=== PATIENT | female | born 2000 | race Two or more races ===

== ENCOUNTER 2025-06-25 00:38 | Emergency (ER) | payer MEDICAID, SELFPAY ==
[2025-06-25 00:43] VITALS: BP 131/87; PULSE 76; RESP 20; TEMP 36.8; O2SAT 96; BMI 26.8
--- NOTE | 2025-06-25 01:03 | XR_ITS ---
Examination: CT abdomen with intravenous contrast CT pelvis with intravenous contrast 2-D coronal reconstructions 2-D sagittal reconstructions Date and time of exam: June 25, 2025, 0209 hours INDICATIONS: Onset right lower abdominal pain today. CTDI: vol (mGy) 7.12 DLP: (mGycm) 384 Technique: Multiple axial sections of the abdomen and pelvis have been obtained. 64 slice high-resolution scanner used. 3 mm axial sections have been obtained, post intravenous injection 60 cc [id number] 2-D sagittal, coronal reconstructions obtained. Low dose protocols were performed. One or more of the following dose reduction techniques were used; automated exposure control, adjustment of the mA and/or KV according to patient size, use of iterative reconstruction technique. Findings: No visualized liver or splenic lesion No gallstones No pancreatic mass. No renal or ureteral calculi, no hydronephrosis Tiny fat-containing umbilical hernia. Normal appendix No bowel obstruction Involuting 16 mm left ovarian follicular cyst with free fluid in the pelvis No bladder mass IMPRESSION: Normal appendix Involuting 16 mm left ovarian follicular cyst with free fluid in the pelvis, consider pelvic sonography follow-up
[2025-06-25 01:05] LABS: Collection Type, Urine Clean Catch
--- NOTE | 2025-06-25 01:06 | EDNOTE_ITS ---
ED Abdominal Pain RME/HPI General Chief Complaint: Abdominal Pain Stated complaint: ABD PAIN Arrival date/time: 06/25/25 00:38 RME / HPI RME / HPI narrative: CC abdominal pain Patient is a 25-year-old female with no past medical history G2T2 who presented to the emergency room via private vehicle with a chief complain of abdominal pain, localized to umbilical region and radiating towards suprapubic region and right lower quadrant. Patient stated pain is currently 5/10 and sharp, worsened by palpation. Abdominal Pain started on Wednesday evening and has been ongoing despite Tylenol q8hrs at home. No Fevers. yes Chills. Yes nausea. NO vomiting. Denied Constipation. No pain/burn w/ urination. No increase frequency with urination. Denied diarrhea. Denied sick contacts. No past medical surgeries. Previous pregnancies were full term live births without complications. Denied vaginal discharge or foal smelling discharge. No sick contacts. No right upper quadrant pain. Last day of menstrual period on Jun 14, 2025. Allergic only to Advil, no other formulations of NSAIDS, including generic brand of ibuprofen Related Data Home Medications ?Medication ?Instructions ?Recorded ?Confirmed vit no.95-ferrous 1 tab PO DAILY 03/07/21 fumarate 28 mg-folic acid 800 mcg tablet () Previous Rx's ?Medication ?Instructions ?Recorded hydrocodone 2.5 mg-acetaminophen 1 tab PO BID PRN pain 3 days #7 06/25/25 325 mg tablet tabs Allergies Allergy/AdvReac Type Severity Reaction Status Date / Time ibuprofen (From Advil) Allergy Severe Rash and Verified 06/25/25 00:39 swelling of face and throat orange Allergy Severe Rash Verified 06/25/25 00:39 Review of Systems Review of Systems Narrative Review of Systems: General appearance: NO weight change, NO fatigue, NO weakness, NO fever, NO chills, NO night sweats, No cough Skin: NO rash, NO itching, NO sores, NO moles HEENT: NO Trauma, NO nausea, NO vomiting, NO visual changes, NO blurry vision, NO double vision, NO tinnitus, NO vertigo, NO ear discharge, NO rhinorrhea, NO stuffiness, NO sneezing, NO allergy, NO epistaxis. NO Hoarseness, NO sore throat, NO swollen neck. Cardiac: NO Palpitations, NO dyspnea on exertion, NO orthopnea, NO paroxysmal nocturnal dyspnea, NO edema Respiratory: NO Shortness of Breath, NO Wheezing, NO Cough, NO Sputum, NO hemoptysis GI:NO appetite, Yes nausea, NO vomiting, NO dysphagia, NO changes in bowel frequency, NO stool color, NO diarrhea, NO constipation, NO hemetemesis, NO hemorrhoids, NO melena, NO hematechezia, Yes abdominal pain, NO jaundice Renal: NO frequency, NO hesitancy, NO urgency, NO hematuria, NO nocturia, NO incontinence MSK: NO muscle weakness, NO gout, NO arthritis, NO muscle stiffness Neuro: NO headaches, NO tremors, NO weakness, NO paralysis, NO seizures, NO loss of consciousness, NO numbness. Hem: NO anemia, NO easy bruising/bleeding, NO petechiae, NO purpura Endo: NO heat/cold intolerance, NO excessive sweating, NO polyuria, NO polydipsia, NO polyphagia, NO thyroid problems, NO diabetes Pysch: NO mood, NO anxiety, NO depression ED Exam Narrative Physical exam: General Appearance: Alert & Oriented X3, well-nourished female who is lying in bed in no acute distress HEENT: Skull symmetrical and atraumatic. Conjunctivae pin and moist. Pupils equal, round, reactive to light and accommodation (PERRL). External ear without lesion or discharge. Straight, nares patient, mucosa pink, no discharge. No thyroid nodule appreciated. No cervical lymphadenopathy. Cardio: Normal Rate and Rhythm with S1 and S2 heart sounds. No murmurs or extra heart sounds auscultated. No bruits on carotid auscultation. No peripheral edema or cyanosis. Lungs: Symmetric with good expansion. Chest and back non-tender. Breath sounds vesicular without crackles, wheezing or rhonchi Abdomen: yes tender at umbilical region, radiating towards right lower quadrant and suprapubic region, Non-distended, Normal Reactive Bowel Sounds, NO CVA tenderness Neuro: Alert, cooperative, oriented to person, place, and time. Speech clear. CN grossly intact. Upper motor strength 5/5 and Lower motor strength 5/5. Sensation intact. Course Course Course Narrative: CBC CMP hcg UA CT abdomen/pelvis with contrast Quality Measures none Orders Category Date Time Status CT Screening NOW Care 06/25/25 01:[address] abdomen pelvis w con Stat Exams 06/25/25 01:03 Taken US abdomen limited Stat Exams 06/25/25 00:56 Stop Req CBC Stat Lab 06/25/25 01:14 Completed CMP [Comprehensive Metabolic Panel] Stat Lab 06/25/25 01:14 Completed HCG,Qualitative Serum Stat Lab 06/25/25 01:14 Completed Urinalysis, C/S if Indicated Stat Lab 06/25/25 01:00 Completed Ketorolac Inj [Toradol Inj] Med 06/25/25 00:58 Discontinued 30 mg IM X1 ONE Morphine* Inj Med 06/25/25 01:22 Discontinued 2 mg IVP X1 ONE Ondansetron Odt [Zofran Odt] Med 06/25/25 00:59 Discontinued 4 mg PO X1 ONE Vital Signs Vital signs: Vital Signs Temperature 98.2 F 06/25/25 00:43 Pulse Rate 76 06/25/25 00:43 Respiratory Rate 20 06/25/25 00:43 Blood Pressure 131/87 H 06/25/25 00:43 Pulse Oximetry (%) 96 06/25/25 00:43 Oxygen Delivery Method Room Air 06/25/25 00:43 Abdominal Pain MDM Patient data External records reviewed:: [facility] previous records Clinical information provided by:: patient and family Social determinants that could affect healthcare access:: none Patient has the following chronic illnesses:: None How is presenting disease/condition affected by chronic disease/condition?: no chronic disease Evaluation data The following diagnostics were reviewed and interpreted by me:: lab results and radiology exam(s) Lab and/or radiology exams considered but not ordered:: None Interpretation Summary: Patient is a 25-year-old female with no past medical history G2T2 who presented with a chief complain of abdominal pain starting at umbilical region and radiating to patient 's sides.Mild Leukocytosis noted with no tachycardia and no fevers. HCG negative. UA negative, no UTI. CT Abdomen/Pelvis negative for acute appendicitis and no bowel obstruction. Involuting corpus luteum in the left ovary with small amount of free fluid in the pelvis, thus likely diagnosis of ruptured cyst. #Ovarian Cyst - The patient's plan was discussed with attending Dr. Mynor Tellez MD PGY2 Internal Medicine Medications / Prescriptions Medications or Prescriptions considered but not ordered:: none Medication administrations:: Medication Administration History Discontinued Medications Ketorolac Tromethamine (Ketorolac Inj 30 Mg/Ml Vial) 30 mg IM X1 ONE Stop: 06/25/25 00:59 Last Admin: 06/25/25 01:31 Dose: Not Given Documented By: CASSIE Non-Admin Reason: Cancelled by Provider Morphine Sulfate (Morphine Sulf Inj 4 Mg/Ml Vial) 2 mg IVP X1 ONE Stop: 06/25/25 01:23 Last Admin: 06/25/25 01:29 Dose: 2 mg Documented By: CASSIE Ondansetron HCl (Ondansetron Odt 4 Mg Tabrap) 4 mg PO X1 ONE; Protocol Stop: 06/25/25 01:00 Last Admin: 06/25/25 01:29 Dose: 4 mg Documented By: CASSIE same as above Consultations Consultation(s) initiated? (list below): No Diagnosis Differential diagnosis abdominal pain: abdominal pain, acute appendicitis, constipation and gastroenteritis Most likely diagnosis given after review of the tests above:: Patient is a 25-year-old female with no past medical history G2T2 who presented with a chief complain of abdominal pain starting at umbilical region and radiating to patient 's sides.Mild Leukocytosis noted with no tachycardia and no fevers. HCG negative. UA negative, no UTI. CT Abdomen/Pelvis negative for acute appendicitis and no bowel obstruction. Involuting corpus luteum in the left ovary with small amount of free fluid in the pelvis, thus likely diagnosis of ruptured cyst. #Ovarian Cyst #Abdominal Pain - The patient's plan was discussed with attending Dr. Mynor Tellez MD PGY2 Internal Medicine Admission Indicated Admission indicated?: not indicated Admission Request Was there a request for admission?: No Disposition Plan Disposition Plan: Discharge Discharge Attestation Discharge Attestation: The patient and all family members were given an opportunity to ask questions and understood the discharge instructions. Discharge instructions specifically effects, indications for sooner follow up or return to the emergency department, and the expected course of current diagnosis. Patient condition: Stable Discharge Plan Plan Patient Disposition: HOME (Self Care) Patient condition on transfer: Stable Health Concerns: Instructions: -You have been diagnosed with a cyst in the left ovary. -Please take Nocro 1 tablet twice daily NEEDED for pain. Please do not combine with Tylenol. -Your CT abdomen/pelvis showed no appendicitis or stones in your gallbladder. -Please follow-up with an [facility] physician if you continue to experience pain. -Please follow up with your primary care provider within one week of discharge -If your symptoms worsen,please seek immediate medical attention and return to your nearest emergency room -If you do not have a primary care provider, you may follow up at the [facility] [address], [place] [address], Prescriptions/Referrals Prescriptions/Med Rec: New hydrocodone-acetaminophen 2.5-325 mg tablet 1 tab PO BID MDD no more than 2 tablets per day PRN (Reason: pain) 3 Days Qty: 7 0RF Continued PNV no.95-ferrous fumarate-FA [] 28 mg iron- 800 mcg tablet 1 tab PO DAILY Referrals: No Primary/Family,Physician [Referring Provider] - In 1 week Problem List Clinical Impression: Ovarian cyst, Abdominal pain Patient/Caregiver Discharge Instructions Education Materials: ED Ovarian Cyst Print Language: [place] Stand Alone Forms: Maria Eugenia Award Info., Patient Portal Info Letter
--- NOTE | 2025-06-25 01:08 | PC.NURSE ---
MD CHAVEZ OK WITH GIVING TORADOL WITH ALLERGY TO IBUPROFEN
[2025-06-25 01:12] VITALS: BP 125/76; PULSE 74; RESP 18; TEMP 36.6; O2SAT 100
[2025-06-25 01:18] LABS: Bilirubin,Urine Negative (Negative); Blood,Urine Negative (Negative); Clarity,Urine Clear (Clear/Hazy); Color,Urine Lt-Yellow (Lt Yel-Yel); Culture Indicated,Urine Not Indicated; Glucose, Urine Negative (Negative); Ketones,Urine Negative (Negative); Leukocyte Esterase,Urine Negative (Negative); Nitrite,Urine Negative (Negative); PH,Urine 7.0 (5.0-7.0); Protein,Urine Negative (Neg - Trace); RBC,Urine 1 /hpf (0-3); Specific Gravity,Urine 1.012 (1.001-1.035); Squamous Epithelial Cell,Urine 1 /hpf (0-5); Urobilinogen,Urine Negative mg/dL (0.0-1.0); WBC,Urine < 1 /hpf (0-5)
[2025-06-25 01:20] LABS: Basophils # (Auto) 0.1 Thou/mm3 (0.0-0.2); Basophils % (Auto) 1 % (0-2.5); Eosinophils # (Auto) 0.2 Thou/mm3 (0.0-0.5); Eosinophils % (Auto) 1 % (0-10); Hematocrit 40.1 % (36.0-46.0); Hemoglobin 13.6 g/dL (12.0-16.0); Immature Granulocytes Auto 0.04 Thou/mm3 (0.00-0.00); Lymphocytes # (Auto) 3.4 Thou/mm3 (1.0-4.8); Lymphocytes % (Auto) 28 % (10-50); Mean Corpuscular HGB Conc 33.9 g/dl (31.0-37.0); Mean Corpuscular Hemoglobin 28.6 pg (25.0-35.0); Mean Corpuscular Volume 84 fL (80-100); Monocytes # (Auto) 0.8 Thou/mm3 (0.0-0.8); Monocytes % (Auto) 7 % (0-12); Neutrophils # (Auto) 7.8 Thou/mm3 (1.8-7.7); Neutrophils % (Auto) 64 % (37-80); Nucleated Red Blood Cell # 0.00 Thou/mm3 (0.00-0.00); Nucleated Red Blood Cell % 0 /100 WBC (0); Platelet Count 265 Thou/mm3 (140-440); RDW Standard Deviation 39.9 fL (36.4-46.3); Red Blood Count 4.75 Miln/mm3 (4.00-5.20); White Blood Count 12.2 Thou/mm3 (3.6-11.0)
[2025-06-25] MEDS: MORPHINE SULF INJ 4 MG/ML VIAL 2 MG IVP (01:29)
[2025-06-25] MEDS: ONDANSETRON ODT 4 MG TABRAP PO (01:29)
[2025-06-25 01:37] LABS: HCG,Qualitative Serum Negative
[2025-06-25 01:39] LABS: Alanine Aminotransferase 24 U/L (10-49); Albumin, Serum 4.6 gm/dL (3.5-5.0); Albumin/Globulin Ratio 2.2 (1.2-2.2); Alkaline Phosphatase 106 U/L (46-116); Anion Gap 9 (7-16); Aspartate Amino Transferase 18 U/L (0-34); BUN/Creatinine Ratio 10 Ratio (12-20); Bilirubin,Total 0.3 mg/dL (0.3-1.2); Blood Urea Nitrogen 8 mg/dL (9-23); Calcium 9.4 mg/dL (8.3-10.6); Calcium (Corrected) 9.4 mg/dL (8.5-10.1); Carbon Dioxide 28.7 mMol/L (20.0-31.0); Chloride 105 mMol/L (98-107); Creatinine (Component) 0.8 mg/dL (0.6-1.3); Estimated Creatinine Clearance 89.4 mL/min (>60); Globulin 2.1 gm/dL (2.3-3.5); Glucose 133 mg/dL (74-106); Osmolality,Calculated 285 (275-295); Potassium 3.7 mMol/L (3.4-5.1); Sodium 143 mMol/L (136-145); Total Protein 6.7 gm/dL (5.7-8.2); eGFR > 60 See Note
[2025-06-25 03:00] VITALS: BP 103/64; PULSE 68; RESP 18; TEMP 36.6; O2SAT 100
--- NOTE | 2025-06-25 03:16 | PRELIM_ITS ---
CT scan of the abdomen and pelvis with intravenous contrast (axial sections with sagittal and coronal reformats) June 25, 2025 0209 hours Clinical History: Abdominal pain, rule out appendicitis. Comparison: No prior study is available for comparison. Findings: The lung bases are clear. There is fatty infiltration of the liver. The gallbladder, pancreas, spleen, kidneys and adrenals are unremarkable. No evidence of bowel obstruction. The appendix is within normal limits (images [id number], series 2). There is no mesenteric or retroperitoneal adenopathy. The urinary bladder is unremarkable. The uterus is retroflexed. Involuting corpus luteum cyst in the left ovary with small amount of free fluid in the pelvis. No intraperitoneal free air. The osseous structures are unremarkable. Impression: No acute appendicitis. No evidence of bowel obstruction, free air or abscess. Involuting corpus luteum cyst in the left ovary with small amount of free fluid in the pelvis. Other findings as described above. Report Electronically Signed By: Mono Valdez 06/25/2025 3:16:01 AM [EST]
[2025-06-25 03:41] VITALS: BP 119/86; PULSE 65; RESP 18; TEMP 36.9; O2SAT 100
== END 2025-06-25 03:43 | disposition home or self-care (01) ==
PROVIDERS: PCP Family Medicine
DX: N83.02 Follicular cyst of left ovary (principal); D72.829 Elevated white blood cell count, unspecified
CPT/HCPCS: 36415; 74177; 80053; 81001; 84703; 85025; 96374; 99283; A4649; J2270; Q0162; Q9967

== ENCOUNTER 2025-08-07 13:48 | Emergency (ER) | payer MEDICAID, SELFPAY ==
[2025-08-07 14:25] VITALS: BP 122/75; PULSE 108; RESP 18; TEMP 37.6; O2SAT 98; BMI 26.6
--- NOTE | 2025-08-07 14:30 | XR_ITS ---
Study: 1 view chest. INDICATION: Fever, headache and chest pain for 1 day. TECHNIQUE: AP upright chest radiograph at 1436 hours 07 August 2025. No comparison study. FINDINGS: The lungs are fully expanded and free from alveolar infiltrates or nodules. There are no effusions. The heart is normal in size and contour. Superior mediastinal structures are narrow and peripheral vessels are normal in distribution. IMPRESSION: No acute diagnostic abnormality.
[2025-08-07 16:44] LABS: Collection Type, Urine Voided; RBC,Urine 0 /hpf (0-3)
[2025-08-07 16:51] LABS: Bilirubin,Urine Negative (Negative); Blood,Urine Negative (Negative); Clarity,Urine Clear (Clear/Hazy); Color,Urine Colorless (Lt Yel-Yel); Glucose, Urine Negative (Negative); Ketones,Urine Negative (Negative); Leukocyte Esterase,Urine Negative (Negative); Nitrite,Urine Negative (Negative); PH,Urine 7.0 (5.0-7.0); Protein,Urine Negative (Neg - Trace); Specific Gravity,Urine 1.007 (1.001-1.035); Squamous Epithelial Cell,Urine 2 /hpf (0-5); Urobilinogen,Urine Negative mg/dL (0.0-1.0); WBC,Urine 1 /hpf (0-5)
[2025-08-07 17:13] LABS: HCG Qualitative,Urine Positive
--- NOTE | 2025-08-07 17:36 | PD.EDFEVER ---
ED Fever RME/HPI General Chief Complaint: Headache Stated Complaint: HEADACHE, EYES BURNING, COUGH, FEVER, ACHY BONES Time Seen by Provider: 08/07/25 13:59 Arrival date/time: 08/07/25 13:48 This is a case of 25-year-old female with no medical history came into the emergency room due to fever for 2 days associated with cough frontal headache body ache persistence of the symptoms thus patient decided to sought consult here in the emergency room no shortness of breath no wheezing no chest pain patient denies Limitations: no limitations Related Data Home Medications ?Medication ?Instructions ?Recorded ?Confirmed vit no.95-ferrous 1 tab PO DAILY 03/07/21 08/26/22 fumarate 28 mg-folic acid 800 mcg tablet () Previous Rx's ?Medication ?Instructions ?Recorded albuterol sulfate 90 mcg/actuation 1 puff inhalation Q4H PRN 08/07/25 aerosol inhaler (Ventolin HFA) shortness of breath or wheezing #8.5 grams oseltamivir 75 mg capsule (Tamiflu) 75 mg PO BID 5 days #10 caps 08/07/25 Allergies Allergy/AdvReac Type Severity Reaction Status Date / Time ibuprofen (From Advil) Allergy Severe Rash and Verified 08/07/25 13:51 swelling of face and throat orange Allergy Severe Rash Verified 08/07/25 13:51 Review of Systems Review of Systems Systems Reviewed: All systems reviewed, normal except as documented Past Medical History Past Medical History NEUROLOGIC: Negative Neurological Disorders CARDIAC: Negative Cardiac Disorders or Congestive Heart Failure RESPIRATORY: Negative Chronic Obstructive Pulmonary Disease (COPD) or Asthma GASTROINTESTINAL: Negative Gastrointestinal Disorders or Hepatitis GENITOURINARY: Negative Genitourinary Disorders or Renal Disease REPRODUCTIVE: Positive Previous Pregnancies (2020); Negative Endometriosis, Pelvic Inflammatory Disease or Uterine Prolapse MUSCULOSKELETAL: Negative Musculoskeletal Disorders ENDOCRINE: Negative Endocrine Disorders, Diabetes Mellitus Type 1 or Diabetes Mellitus Type 2 HEMATOLOGIC: Positive Blood Disorders and Anemia (in ); Negative Sickle Cell Disease OTHER HISTORY: Positive Hospitalization ( 2020); Negative Autoimmune Disease, Down Syndrome, Developmental Delay, Shingles, Falls, Blood Transfusions, Anesthesia Reactions, Organ Transplant, Chemotherapy, Radiation Therapy, MRSA, VRSA, Vancomycin-Resistant Enterococci, Human Immunodeficiency Virus (HIV), Chicken Pox, Measles, Mumps, Rubella (Lao Measles), Pertussis, Clostridium Difficile or Cancer Family History FAMILY HISTORY: Negative Family Psychiatric Problems, Family Respiratory Disorders, Family Cardiac Disorders, Family Gastrointestinal Problems, Family Cancer, Family Surgery or Family Anesthesia Reaction Surgical History SURGICAL: Negative Cardiac Surgery, Endocrine Surgery, Ear Surgery, Abdominal Surgery, Nephrectomy, Joint Replacement, Neurologic Surgery, Mastectomy, Lumpectomy, Hysterectomy, Tubal Ligation, Section or Organ Transplant Social History SMOKING STATUS: Never smoker SECOND HAND EXPOSURE: No SUBSTANCE USE: does not use Physical Exam General Limitations: no limitations General appearance: alert, in no apparent distress and other (Patient is awake alert oriented not in distress nontoxic looking well-hydrated well nourised) Head Head exam: atraumatic, normocephalic and normal inspection Eye Eye exam: Present normal appearance, PERRL and EOMI ENT ENT exam: Present normal exam, normal oropharynx, mucous membranes moist and other (HEENT exam is normal and unremarkable) Neck Neck exam: Present normal inspection, full ROM, trachea midline and other (Negative for meningeal sign); Absent tenderness, meningismus, lymphadenopathy or thyromegaly Chest Chest inspection: Present normal inspection and symmetric chest wall rise; Absent tenderness Respiratory Respiratory exam: Present normal lung sounds bilaterally; Absent respiratory distress, wheezes, stridor, accessory muscle use or prolonged expiratory phase Cardiovascular Cardiovascular exam: Present regular rate, normal rhythm and normal heart sounds; Absent bradycardia, tachycardia, irregular rhythm, systolic murmur or diastolic murmur Abdominal Exam Abdominal exam: Present soft and normal bowel sounds; Absent distention, tenderness, guarding, rebound, rigidity, diminished bowel sounds, hyperactive bowel sounds, hypoactive bowel sounds or organomegaly Extremities Exam Extremities exam: Present normal inspection and full ROM Back Exam Back exam: Present normal inspection and full ROM Neurological Exam Neurological exam: Present alert, oriented X3, CN II-XII intact, normal gait and reflexes normal; Absent motor sensory deficit Psychiatric Psychiatric exam: Present normal affect and normal mood Skin Skin exam: Present warm, dry, intact, normal color and other (Excellent skin turgor) ED Exam General Limitations: Present no limitations General appearance: Present alert, in no apparent distress and other (Patient is awake alert oriented not in distress nontoxic looking well-hydrated well nourised) Head Head exam: Present atraumatic, normocephalic and normal inspection Eye Eye exam: Present normal appearance, PERRL and EOMI ENT ENT exam: Present normal exam, normal oropharynx, mucous membranes moist and other (HEENT exam is normal and unremarkable) Neck Neck exam: Present normal inspection, full ROM, trachea midline and other (Negative for meningeal sign); Absent tenderness, meningismus, lymphadenopathy or thyromegaly Chest Chest inspection: Present normal inspection and symmetric chest wall rise; Absent tenderness Respiratory Respiratory exam: Present normal lung sounds bilaterally; Absent respiratory distress, wheezes, stridor, accessory muscle use or prolonged expiratory phase Cardiovascular Cardiovascular exam: Present regular rate, normal rhythm and normal heart sounds; Absent bradycardia, tachycardia, irregular rhythm, systolic murmur or diastolic murmur Abdominal Exam Abdominal exam: Present soft and normal bowel sounds; Absent distention, tenderness, guarding, rebound, rigidity, diminished bowel sounds, hyperactive bowel sounds, hypoactive bowel sounds or organomegaly Extremities Exam Extremities exam: Present normal inspection and full ROM Back Exam Back exam: Present normal inspection and full ROM Neurological Exam Neurological exam: Present alert, oriented X3, CN II-XII intact, normal gait and reflexes normal; Absent motor sensory deficit Psychiatric Psychiatric exam: Present normal affect and normal mood Skin Skin exam: Present warm, dry, intact, normal color and other (Excellent skin turgor) Course Quality Measures none Orders Category Date Time Status Bedside COVID-19 Antigen Test NOW Care 08/07/25 14:30 Active Bedside Influenza A&B Antigen Test NOW Care 08/07/25 14:30 Completed Bedside STREP Test NOW Care 08/07/25 14:30 Active XR chest 1V Stat Exams 08/07/25 14:30 Completed HCG Qualitative,Urine Stat Lab 08/07/25 16:40 Completed Urinalysis Stat Lab 08/07/25 16:40 Completed Vital Signs Vital signs: Vital Signs Temperature 99.7 F 08/07/25 14:25 Pulse Rate 108 H 08/07/25 14:25 Respiratory Rate 18 08/07/25 14:25 Blood Pressure 122/75 08/07/25 14:25 Pulse Oximetry (%) 98 08/07/25 14:25 Oxygen Delivery Method Room Air 08/07/25 14:25 Oxygen saturation is 98% on room air Fever MDM Narrative MDM Narrative:: This is a case of 25-year-old female with no medical history came into the emergency room due to fever for 2 days associated with cough frontal headache body ache persistence of the symptoms thus patient decided to sought consult here in the emergency room no shortness of breath no wheezing no chest pain patient denies physical examination patient is awake alert oriented not in distress nontoxic looking well-hydrated well-nourished vital signs stable BP stable slightly tachycardic at 108 not tachypneic afebrile at temperature 99.7 nonhypoxic oxygen saturation is 98% in room air HEENT exam is normal and unremarkable negative for meningeal sign excellent skin turgor lungs sound is clear equal no crackles no rales no wheezing no retraction no stridor abdomen soft normal active bowel sound no guarding no rebound no rigidity the rest of the physical examination neurological exam is normal and unremarkable patient COVID is negative influenza B is negative influenza A is positive chest x-ray is normal urinalysis is normal patient have accidental finding of positive test patient LMP is second week of the July 2025 I offered patient to have ultrasound and beta-hCG but patient refused and wanted to be discharged patient will follow-up with PCP in 2 days for reevaluation and for any worsening symptoms or any emergent concern return to the emergency room immediately or call [phone] I discussed with the patient that she had chest x-ray and exposure to radiation initially patient denies and the LMP was second july last chest x-ray was ordered and done prior to the test I discussed with the patient the possible infected the fetus patient was notified that he will follow-up to OB sales promotion representative for further evaluation and treatment the patient is fully understand regarding the risk and complication of the chest x-ray on her and she will continue to monitor her and for any worsening symptoms or any emergent concerns such as vaginal bleeding vaginal discharge vaginal spotting she will return to the emergency room immediately or call 911 patient patient was prescribed with Tamiflu which is safe for and Ventolin inhaler for cough or any worsening symptoms or any emergent concern return precaution in the ER isadvasied Patient was discharged with comfortable condition walking with stable gait. Patient verbalized no further complains explained diagnosis and answered patient question. Patient is comfortable with the proposed management plan including the need to follow up with his/her primary care physician and any specialist if applicable Discussed patient for any urgent condition or worsening sx, He/She needed to go to emergency room immediately or call 911. Patient acknowledge the responsibility to follow up as instructed and to monitor her/his symptoms. For any persistence of the symptoms for more than 3-5 days return precaution advised. Discussed the result of the test and was given printed discharge instruction Patient data External records reviewed:: [facility] previous records Clinical information provided by:: patient Social determinants that could affect healthcare access:: none (None) Patient has the following chronic illnesses:: None How is presenting disease/condition affected by chronic disease/condition?: no chronic disease Evaluation data The following diagnostics were reviewed and interpreted by me:: lab results and radiology exam(s) Lab and/or radiology exams considered but not ordered:: None Interpretation Summary: Reviewed Medications / Prescriptions Medications or Prescriptions considered but not ordered:: Given Medication administrations:: Given Consultations Consultation(s) initiated? (list below): No Diagnosis Fever Differential Diagnosis: fever of unknown origin, community acquired pneumonia, viral infection and influenza Most likely diagnosis given after review of the tests above:: Influenza A Admission Indicated Admission indicated?: not indicated Explain why admission is indicated or not indicated:: Not indicated Admission Request Was there a request for admission?: No Admission Attestation Admission request attestation: Not indicated Disposition Plan Disposition Plan: Discharge Discharge Attestation Discharge Attestation: The patient and all family members were given an opportunity to ask questions and understood the discharge instructions. Discharge instructions specifically effects, indications for sooner follow up or return to the emergency department, and the expected course of current diagnosis. Patient condition: Stable Discharge Plan Plan Patient Disposition: HOME (Self Care) Patient condition on transfer: Stable Prescriptions/Referrals Prescriptions/Med Rec: New oseltamivir [Tamiflu] 75 mg capsule 75 mg PO BID 5 Days Qty: 10 0RF albuterol sulfate [Ventolin HFA] 90 mcg/actuation HFA aerosol inhaler 1 puff inhalation Q4H PRN (Reason: shortness of breath or wheezing) Qty: 8.5 0RF Rx Instructions: Please give No Action PNV no.95-ferrous fumarate-FA [] 28 mg iron- 800 mcg tablet 1 tab PO DAILY Referrals: Hernando Duval MD [Primary Care Provider, Family Practice] - In 1 week Problem List Clinical Impression: Fever, Influenza A, Cough, Patient/Caregiver Discharge Instructions Education Materials: First Trimester, ED Cough Chronic Uncertain Cause Adult, ED FUO Adult, ED Influenza (Adult) Additional Instructions: Follow-up with your primary care physician in 2 days for reevaluation worsening symptoms or any emergent concern call 911 or go to the nearest emergency room take your medication as directed increase water intake keep hydrated take vitamin C daily it is very important to follow-up with your primary care physician to be referred to OB sales promotion representative it is very important to see OB sales promotion representative in 2 days for care checkup start taking multivitamin Print Language: Estonian Stand Alone Forms: Maria Eugenia Award Info., Patient Portal Info Letter PA/CYLINDER VALVE REPAIRER Supervising Physician PA/CYLINDER VALVE REPAIRER Supervising Physician: dr alas
[2025-08-07 17:55] VITALS: BP 117/77; PULSE 132; RESP 17; TEMP 37.8; O2SAT 99
[2025-08-07 18:06] VITALS: TEMP 37.8
[2025-08-07] MEDS: ACETAMINOPHEN 325 MG TABLET 650 MG PO (18:06)
== END 2025-08-08 01:18 | disposition home or self-care (01) ==
PROVIDERS: Nurse Practitioner Family; Emergency Provider Family Medicine; PCP Family Medicine
DX: O99.511 Diseases of the respiratory system complicating pregnancy, first trimester (principal); J10.1 Influenza due to other identified influenza virus with other respiratory manifestations; Z3A.00 Weeks of gestation of pregnancy not specified
CPT/HCPCS: 71045; 81001; 81025; 87502; 87635; 87651; 99283; A9270